=== PATIENT | female | born 1955 | race Caucasian/White ===

== ENCOUNTER → 2021-01-31 | Outpatient (CLI) | payer MEDICARE, OTHER | LOC: EXRD 08:30 | DX: M81.0 Age-related osteoporosis without current pathological fracture (principal); M85.88 Other specified disorders of bone density and structure, other site | CPT/HCPCS: 77080 ==

== ENCOUNTER → 2021-09-11 | Outpatient (CLI) | payer MEDICARE, OTHER ==
[~2021-09-11] VITALS: Ht 160 cm; Wt 58.5 kg
== END ==
LOC: OPSV 12:12
DX: M81.0 Age-related osteoporosis without current pathological fracture (principal)
CPT/HCPCS: 96372